=== PATIENT | female | born 2005 | race African-American/Black ===

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

== ENCOUNTER 2025-07-10 16:17 | Emergency (ER) | payer MEDICAID ==
[~2025-07-10] VITALS: Ht 162.6 cm; Wt 121.0 kg
[~2025-07-10 16:17] MED LIST: ALBU18HF2 IH; [UNRECOGNIZED DRUG - CODE] MC
[2025-07-10 16:19] VITALS: O2SAT 98
[2025-07-10 17:25] LABS: BASOPHILS % 0.7 % (0.0-2.0); EOSINOPHILS % 4.7 % (0.0-5.0); HEMATOCRIT. 34.4 % (36.0-48.0); HEMOGLOBIN. 11.3 g/dL (12.0-16.0); LYMPHOCYTES % 24.1 % (20.0-50.0); MEAN PLATELET VOLUME 7.5 fl (7.4-10.4); MONOCYTES % 9.2 % (2.0-8.0); NEUTROPHILS % 61.3 % (40.0-76.0); PLATELET 354 x1000/uL (130-400); RED BLOOD CELL COUNT 4.04 mill/uL (4.2-5.4); RED CELL DISTRIBUTION WIDTH 16.8 % (11.6-14.6)
[2025-07-10 17:43] LABS: CREATININE 0.8 mg/dL (0.6-1.0); UREA NITROGEN BLOOD 17 mg/dL (9-23)
[2025-07-10 17:44] LABS: TROPONIN I HIGH SENSITIVITY < 4 ng/L (3.0-34)
[2025-07-10 18:37] VITALS: BP 137/64; PULSE 75; RESP 18; TEMP 36.7; O2SAT 98
== END 2025-07-10 18:37 | disposition home or self-care (01) ==
LOC: ER 16:17
DX: R07.9 Chest pain, unspecified (principal); T41.0X5A Adverse effect of inhaled anesthetics, initial encounter; F19.10 Other psychoactive substance abuse, uncomplicated; Y92.89 Other specified places as the place of occurrence of the external cause
CPT/HCPCS: 36415; 71045; 80048; 84484; 85025; 93005; 99285